=== PATIENT | male | born 1970 | race Caucasian/White ===

== ENCOUNTER → 2017-06-23 | Outpatient (CLI) | payer BC ==
[~2017-06-23] MED LIST: OPTIRAY 320 IV PRN
--- NOTE | 2017-06-23 11:39 | DIAGNOSTIC IMAGING REPORT ---
ABD/PELVIS IV AND ORAL CONT CT DOSE: 539.97 mGycm HISTORY: Left flank pain LLQ PAIN TECHNIQUE: Multiaxial CT images of the abdomen and pelvis were performed following the use of intravenous and oral contrast. A dose lowering technique was utilized adhering to the principles of ALARA. COMPARISON STUDY: None. FINDINGS: Lung bases are clear. splenomegaly. Liver is uniform in appearance. The adrenal glands are unremarkable. The kidneys enhance uniformly. Bowel pattern overall is considered nonobstructive. Findings of mild chronic sigmoid diverticulosis. No well-defined evidence for acute diverticulitis. Several small reactive periaortic and or mesenteric nodes none of which exceed 6 mm. IMPRESSION: 1. Chronic sigmoid diverticulosis with no evidence for acute diverticulitis. 2. splenomegaly with the spleen measuring 15 cm. 3. Study is otherwise negative. The above report was generated using voice recognition software. It may contain grammatical, syntax or spelling errors. Electronically signed by: Parker Alfaro M.D. 06/23/2017 11:38 AM Dictated Date/Time: 06/23/2017 11:34 AM
== END | disposition home or self-care (01) ==
LOC: C.CTS 09:13
PROVIDERS: ATTEND Student in an Organized Health Care Education/Training Program
DX: R10.32 Left lower quadrant pain (principal); K57.30 Diverticulosis of large intestine without perforation or abscess without bleeding; R16.1 Splenomegaly, not elsewhere classified